=== PATIENT | female | born 1935 | race Caucasian/White ===

== ENCOUNTER 2024-02-29 23:44 | Inpatient (IN) | payer OTHER, SELFPAY ==
[2024-02-29 16:33] VITALS: BP 132/87
[2024-02-29 16:46] VITALS: BMI 17.1
--- NOTE | 2024-02-29 16:52 | HPS.HSE ---
Family Physician
-
Family Physician: Nestor Tamez
Chief Complaint
-
Transfer from [facility] for invasive coronary evaluation.
History of Present Illness
88 y/o female with permanent atrial fibrillation on apixaban and recently diagnosed anemia and systolic cardiomyopathy transferred from [facility] for work up of her cardiomyopathy.
The patient was hospitalized at [facility] from 02/01/2024 to 02/07/2024 with sudden onset SOB/SALOMON and heart failure after CT chest showed pulmonary edema and severe coronary artery calcification. She was hypotensive and required norepinephrine and admission
to the ICU. She was diuresed and weaned off of pressors. Metoprolol was held due to hypotension. Rate control was established with digoxin (IV load, followed by 0.125 mg daily). Troponin peaked at 581 (high sensitivity). Echocardiogram showed
severe left ventricular systolic dysfunction, LVEF 20-25% with severe, global hypokinesis sparing only the basal inferior segment, moderate mitral regurgitation and probably mild . She was discharged with intent to perform outpatient stress test,
barring development of unstable angina. She was found to be anemic (normocytic) but presumed to be iron deficiency. Hbg dropped as low as 8.1. She was not transfused. She expressed hesitation at the thought of EGD/Colonoscopy and has never had
one. She was discharged on atorvastatin, digoxin, ferrous sulfate and apixaban 2.5 mg BID.
The patient was seen by her primary commercial engineer (Dr. Lezama) on 02/14/2024. The patient's digoxin was high prior to the visit and dosing was adjusted to 0.125 mg QOD. Metoprolol succinate 50 mg daily and valsartan 80 mg daily were restarted at
that time as her blood pressure was normal. Cardiac catheterization, EGD and colonoscopy were discussed at that visit, but the initial plan was to defer invasive testing.
On 02/28/2024, the patient re-presented to [facility] with 'arm pain' described as sharp, shooting pains under arms, lasting several minutes at a time. Later than eventing, she developed 10 minutes of left sided chest pain. She was admitted for further
evaluation. Troponin was abnormal at 217 --> 230. She was hemodynamically stable and had an improved H/H from prior. Apixaban was held and a heparin gtt was started. Given her second presentation and elevated troponin, Dr. Amaya reached out for
transfer and invasive coronary evaluation.
On arrival, the patient reveals well. She has not had any more chest or arm pain since last night. Her son, Neeraj, is present and corroborates her story.
DATA:
Transthoracic echocardiogram, 02/02/2024 ([facility]):
Technically fair window.
Borderline concentric left ventricular hypertrophy, though with localized upper septal thickening, no evidence of LVOT gradient.
Severe left ventricular systolic impairment. Estimated LV ejection fraction visually is approximately 20 to 25%. The inferior basilar segment appears to thicken normally. Significant hypokinesis of the remaining myocardium. Basal mid anterior
and anteroseptal segments appear akinetic.
Normal-appearing RV systolic function.
Marked biatrial enlargement.
Ascending aorta moderately dilated, 4.6 cm diameter.
Nonspecific mitral thickening, mild mitral annular calcification, no obvious restriction.
Aortic valve is thickened and sclerotic, with reduced cusp separation. Peak and mean aortic systolic gradient 15 and 8 mmHg respectively, with DVI 0.4, suggestive for low-flow/low gradient mild to moderate aortic stenosis.
Moderate mitral regurgitation, mild tricuspid insufficiency, minimal aortic and pulmonary sufficiency.
LV diastolic function indeterminate due to atrial fibrillation.
IVC diameter normal, with normal respiratory variation.
Trace pericardial effusion.
Large left pleural effusion.
Comparison study from August 10, 2018 demonstrated normal LV systolic function, sclerotic aortic valve without stenosis. Mildly dilated ascending aorta, 4.[address] chest, 02/01/2024 ([facility]):
1. Findings suggesting pulmonary edema and atelectasis with no definite airspace process.
2. Mildly dilated ascending thoracic aorta for which annual follow-up is the standard recommendation.
3. Severe coronary artery calcification is present.
Medical History
Past Medical History
Past Medical History: Reports Arrhythmia (Permanent atrial fibrillation.), CHF (LVEF 20-25% with regional wall motion abnormalities.), HTN, Hypercholesterolemia and Other (Anemia)
Past Surgical History: Reports None
Social History
Tobacco: Non-smoker
Alcohol: None
Drug: None
Employment: Retired
Family History
Family History: Not pertinent
Allergies / Home Medications
Allergies reflects when Allergies were last updated in [employer].
Home Medications with original date entered in [employer]
Allergy/Medication List:
Home medications:
Metoprolol succinate 50 mg daily.
Valsartan 80 mg daily.
Apixaban 2.5 mg twice daily.
Atorvastatin 80 mg daily.
Digoxin 125 mcg every other day.
Ferrous sulfate 325 mg twice daily.
Allergies:
Cefaclor
Cephalexin
Iodinated contrast
Tramadol
Review of Systems
-
Constitutional: Reports No Symptoms and See HPI
EENT: Reports No Symptoms and See HPI
Respiratory: Reports No Symptoms and See HPI
Cardiac: Reports Chest Pain
Abdomen/GI: Reports No Symptoms
: Reports No Symptoms and See HPI
Musculoskeletal: Reports No Symptoms and See HPI
Physical Exam
Vital Signs
Vital Signs
Pulse BP Pulse Ox
101 132/87 97
02/29/24 16:45 02/29/24 16:33 02/29/24 16:33
Physical Exam
General: Well Developed, Well Nourished, No Apparent Distress, Comfortable and Conversant
HEENT: NormoCephalic, Anicteric, Moist mucous membranes, Atraumatic, Good Dentition, PERRLA, Devine Conjunctivae, No Ptosis, Nose Appears Normal, Ears Appear Normal and Neck Nontender
Respiratory: Clear, Non Labored Respirations and Clear to Percussion
Cardiac: S1/S2 and Regular Rhythm
Breast: Deferred by me
GI: Soft, Non Tender, Non Distended and Normal Bowel Sounds
Rectal: Deferred by Provider
Genito-urinary: Deferred by me
Musculoskeletal: No Clubbing, No Cyanosis and No Edema
Skin: Warm and Dry
Neuro: AO x 3, No Motor Deficits, Nonfocal/grossly intact, Cranial Nerves Intact and No Sensory Deficits
Hematologic/Lymphatic: No Lymphadenopathy
Psych: Calm and Intact Judgment/Insight
Laboratory Results
-
02/29/2024 ([facility]):
Sodium 139
Potassium 4.0
Chloride 106
Carbon dioxide 24
BUN 11
Creatinine 0.80
Glucose 82
Calcium 8.2
Magnesium 1.5
WBC 6.1
Hemoglobin 10.0
Hematocrit 32.2
Platelets 206,000
Data Reviewed
-
Diagnostic Radiology: Report Reviewed by me
CT Scan: Report Reviewed by me
Medical Tests (Nuc Med, Echo, EKG etc): Report Reviewed by me
Lab Data: Labs Reviewed by me, Discussed with Physician, Discussed with Nurse and Discussed with Patient
Impression/Plan
-
Impression/Plan: 88 y/o female with HTN, HLD, permanent atrial fibrillation, anemia and severe systolic cardiomyopathy transferred from [facility] for invasive coronary evaluation given two recent admissions.
#Systolic cardiomyopathy
-New as of 02/01/2024.
-LVEF 20-25% with regional wall motion abnormalities.
-CT scan comments on severe coronary calcification.
-R/L catheterization tomorrow for clarification of filling pressures, coronary anatomy.
#Permanent atrial fibrillation
-Chronic, stable.
-Rate controlled on metoprolol and digoxin.
-CHADS2-Vasc = 5 (CHF, HTN, Age x2, Female).
-Apixaban on hold given troponin elevation and need for cath.
#Abnormal troponin
-Acute.
-Check troponin here. Trend from [facility] does not appear to have a peak/fall. There may be CAD but I am not convinced this is true ACS.
#Anemia
-New since 02/01/2024.
-Check Fe/B12/Folate/FOBT/peripheral smear, reticulocyte count/index.
#HTN
-Chronic, stable.
-Continue metoprolol, vasartan.
#HLD/ASCVD
-Chronic, stable.
-Check lipids.
-Continue atorvastatin 80 mg daily.
#PPx
-SCD's and heparin gtt for DVT/VTE.
-No role for PPI at this time.
#Dispo
-IVU status.
[2024-02-29 17:00] VITALS: BMI 17.1
--- NOTE | 2024-02-29 17:30 | PTCARENOTE ---
Assumed care of pt upon tsf from [facility]. No report or orders were available. VSS. Pt arrives with Heparin drip infusing at 550 units/hr through RFA IV. VSS, CM shows AF 70's, POX 97% on RA. Son at bedside, pt oriented to room and
surroundings, awaiting further orders.
[2024-02-29] MEDS: HEPARIN 25000 UNITS/250 ML IV (18:55)
[2024-02-29 19:24] VITALS: BP 99/78
[2024-02-29 20:35] LABS: Hematocrit 34.3 % (37.0-47.0); Hemoglobin 11.2 g/dL (12.0-16.0); Mean Corp Hgb Conc. 32.7 g/dL (33.0-37.0); Mean Corpuscular Hgb 27.2 pg (27.0-31.0); Mean Corpuscular Volume 83.3 fL (81.0-99.0); Mean Platelet Volume 9.6 fL (7.4-10.4); Platelet Count 249 10^3/uL (130-400); Red Blood Cell Count 4.12 10^6/uL (4.20-5.40); Red Cell Dist. Width 17.2 % (11.5-14.5); White Blood Cell Count 7.7 10^3/uL (4.8-10.8)
[2024-02-29 20:48] LABS: ALT (SGPT) 11 U/L (0-35); AST (SGOT) 33 U/L (14-36); Alkaline Phosphatase 99 U/L (38-126); Blood Urea Nitrogen 13 mg/dl (7-17); Calcium 8.4 mg/dl (8.4-10.2); Carbon Dioxide 25 mmol/L (22-30); Chloride 106 mmol/L (98-107); Estimated Creatinine Clearance 39 ml/min; Glucose 102 mg/dl (70-99); Sodium 135 mmol/L (135-145); Total Bilirubin 0.7 mg/dl (0.2-1.3); Total Protein 6.1 g/dl (6.3-8.2); eGFR > 60.00
[2024-02-29] MEDS: LIPITOR 80 MG PO (21:01)
[2024-02-29] MEDS: DELTASONE 50 MG PO (21:01)
[2024-02-29 23:31] VITALS: BP 106/63
[2024-03-01] VITALS (16 sets, daily range): BP systolic 91–130; BP diastolic 46–92
--- NOTE | 2024-03-01 00:41 | PTCARENOTE ---
Pt afib on the monitor- no pain complaints at this time. Heparin gtt running. plan of care discussed- pt verbalized understanding.
[2024-03-01] MEDS: DELTASONE 50 MG PO ×2 (03:21→09:01)
[2024-03-01 04:18] LABS: Hematocrit 34.8 % (37.0-47.0); Hemoglobin 11.3 g/dL (12.0-16.0); Mean Corp Hgb Conc. 32.5 g/dL (33.0-37.0); Mean Corpuscular Volume 83.1 fL (81.0-99.0); Mean Platelet Volume 10.6 fL (7.4-10.4); Platelet Count 255 10^3/uL (130-400); Red Blood Cell Count 4.19 10^6/uL (4.20-5.40); Red Cell Dist. Width 17.2 % (11.5-14.5); White Blood Cell Count 5.9 10^3/uL (4.8-10.8)
[2024-03-01 04:36] LABS: APTT 69.7 Sec (23.4-35.0)
[2024-03-01 04:40] LABS: Blood Urea Nitrogen 13 mg/dl (7-17); Calcium 8.5 mg/dl (8.4-10.2); Carbon Dioxide 22 mmol/L (22-30); Chloride 107 mmol/L (98-107); Estimated Creatinine Clearance 39 ml/min; Glucose 130 mg/dl (70-99); Potassium 4.6 mmol/L (3.5-5.1); Sodium 137 mmol/L (135-145); eGFR > 60.00
[2024-03-01] MEDS: LANOXIN 125 MCG PO (06:31)
[2024-03-01] MEDS: TOPROL XL 50 MG PO (09:01)
[2024-03-01] MEDS: NSS (PRESERVATIVE FREE) 8 ML IV (10:13)
[2024-03-01] MEDS: PEPCID 20 MG IV (10:15)
[2024-03-01] MEDS: BENADRYL 25 MG IV (10:16)
--- NOTE | 2024-03-01 10:23 | W.PN.CD ---
Today's Communication / Plan
-
Right/Left cardiac catheterization today.
Impression / Plan
-
Impression/Plan: 88 y/o female with HTN, HLD, permanent atrial fibrillation, anemia and severe systolic cardiomyopathy transferred from [facility] for invasive coronary evaluation given two recent admissions.
#Systolic cardiomyopathy
-New as of 02/01/2024.
-LVEF 20-25% with regional wall motion abnormalities.
-CT scan comments on severe coronary calcification.
-R/L catheterization today.
#Permanent atrial fibrillation
-Chronic, stable.
-Rate controlled on metoprolol and digoxin.
-CHADS2-Vasc = 5 (CHF, HTN, Age x2, Female).
-Apixaban on hold given troponin elevation and need for cath.
#Abnormal troponin
-Acute.
-Check troponin here. Trend from [facility] does not appear to have a peak/fall. There may be CAD but I am not convinced this is true ACS.
#Anemia
-New since 02/01/2024.
-Check Fe/B12/Folate/FOBT/peripheral smear, reticulocyte count/index.
#HTN
-Chronic, stable.
-Continue metoprolol, vasartan.
#HLD/ASCVD
-Chronic, stable.
-Check lipids.
-Continue atorvastatin 80 mg daily.
#PPx
-SCD's and heparin gtt for DVT/VTE.
-No role for PPI at this time.
#Dispo
-IVU status.
Subjective/Interval History:
No acute events.
No subjective complaints.
She feels well.
She was premedicated for catheterization/contrast allergy overnight.
Physical Exam
Vital Signs/Labs
Vital Signs
Temp Pulse Resp BP Pulse Ox
36.5 C 74 16 119/89 98
03/01/24 07:00 03/01/24 10:00 03/01/24 07:00 03/01/24 07:09 03/01/24 07:09
02/28/24 02/29/24 03/01/24
11:59 11:59 11:59
Actual Weight 45.1 kg
03/01/24 03:28
03/01/24 03:28
APTT 69.7 Sec (23.4-35.0) H 03/01/24 03:28
LAB Results
02/29/24 02/29/24 03/01/24
20:19 21:15 03:28
Troponin I 1.790 H* Cancelled 1.030 H* D
Physical Exam
Constitutional: No acute distress and Comfortable
EENT: Anicteric and Moist mucous membranes
Cardiovascular: Pedal edema is absent, JVD pressure is normal, Rhythm/rate is irregular, S1S2 is normal and Murmur/rub/gallop absent
Respiratory: Respiratory effort normal, Lungs clear to auscul., Wheeze Absent, Crackles Absent and Rhonchi Absent
GI: Soft, Distention absent, Flat, Non tender and Normal bowel sounds
Neuro/Psych: AO x 3
Data Reviewed
-
Date of Service: March 01, 2024
Medical Decision Making: External Notes, Reviewed Test Results, Independent Historian Assessment and Test Interpretation
EKG: Tracing Personally Visualized and interpreted and Report Reviewed by me
Echo: Report Reviewed by me
X-Ray/CT/US/MRI/NUC/PET: Report Reviewed by me
Labs: Labs Reviewed by me and Labs Ordered by me
Old Records: Reviewed
[2024-03-01 10:24] LABS: APTT 133.8 Sec (23.4-35.0)
--- NOTE | 2024-03-01 10:41 | CM ---
Chart reviewed. Patient is independent of ADLS, lives alone in a split level, 0 ELAN. Patient has been staying with her daughter. Patient is current with [facility]. Referral sent to resume services. Plan is for the patient to return to her
daughters house with [facility] CHANEY CM to follow
[2024-03-01 11:10] LABS: % Basophils 0.2 % (0-2); % Immature Granulocytes 0.2 % (0-0.5); % Lymphocytes 11.2 % (20.5-51.1); % Monocytes 1.4 % (1.7-9.3); Absolute Lymphocytes 0.7 10^3/uL (1.2-3.4); Absolute Monocytes 0.1 10^3/uL (0.1-0.6); Absolute Neutrophils 5.1 10^3/uL (1.4-6.5); Nucleated Red Blood Cells % 0 %; Reticulocyte Count 3.4 % (0.4-2.8)
[2024-03-01 11:23] LABS: Iron 53 ug/dl (37-170)
[2024-03-01 11:56] LABS: Ferritin 77.4 ng/ml (11.1-264.0)
[2024-03-01 12:27] LABS: Folate 7.9 ng/ml (2.76-20); Vitamin B12 734 pg/ml (239-931)
[2024-03-01] MEDS: IMDUR (EXTENDED RELEASE) 30 MG PO (13:07)
[2024-03-01] MEDS: DIOVAN 80 MG PO (13:07)
--- NOTE | 2024-03-01 13:13 | ITS.CL.CATH ---
Mental Tester - Catheterization
Cardiac Catheterization
Procedure Report:
CARDIAC CATHETERIZATION REPORT
Date of Procedure: 03/01/2024
Referring: Ezra Amaya D.O.
Indication: Non-ST elevation myocardial infarction, severe systolic cardiomyopathy.
PROCEDURE:
1. Right heart catheterization.
2. Left heart catheterization.
3. Coronary angiography.
4. Aortic valve interrogation.
ACCESS:
6 Macanese right radial artery.
5 Macanese right antecubital vein.
CATHETERS:
1. 5 Macanese balloon wedge.
2. 5 Macanese JL 5.
3. 5 Macanese JR4.
4. 5 Macanese AL-1.
HEMODYNAMIC DATA
Weight (kg): 44.9
AO (s/d/x mmHg): 111/61/81
LV (s/x mmHg): 114/10
PCWP (a/v/x mmHg): 15/15/12
PA (s/d/x mmHg): 28/16/20
RV (s/x mmHg): 28/5
RA (a/v/x mmHg): 04/05/
SVC SvO2 (%): 66.9
PA SvO2 (%): 62.6
SaO2 (%): 96.0
Hbg (g/dL): 10.9
CO (L/min): 3.12
CI (L/min/m2): 2.15
TPG (mmHg): 8
PVR (Knowles Units): 2.56
SVR (dynes*seconds*cm^-5): 1949
AVO2 Diff (Volume %): 4.95
AV gradient (x, mmHg): 6.43
AV area (cm2): 1.50
LEFT VENTRICULOGRAPHY: Not performed.
CORONARY ANGIOGRAPHY
Dominance: Right.
Left Main: Relatively small size, bifurcating vessel. The vessel is diffusely, severely diseased and densely calcified. There is 70-80% relative stenosis throughout the entire vessel.
LAD: Normal size vessel giving rise to 1 significant diagonal. The entire LAD system is severely calcified. There is an 80% lesion in the proximal vessel immediately following a discrete, saccular aneurysm that is likely poststenotic from the
left main. There is a calcified 70-80% lesion in the mid vessel, after the origin of the diagonal accompanied by a second saccular aneurysm. There is a 70-80% lesion in the origin of the diagonal. There is a second 80% lesion in the proximal
diagonal.
Ramus: Congenitally absent.
Circumflex: Chronically totally occluded at its origin.
RCA: Normal size, dominant vessel. The entire vessel is densely calcified throughout. There is a 60% lesion in the mid vessel.
INTERVENTIONS
None.
Closure Device: Vascular band for the right radial artery, manual pressure for the right antecubital vein.
Radiation dose (mGy): 194.55
DAP (cm2.Gy): 13.7281
Fluoroscopy time (minutes): 7.6
Sedation time (minutes): 16
CONCLUSIONS:
1. Right dominant circulation with a diffusely calcified coronary tree, a 60% lesion in the mid RCA, a flush, chronic total occlusion of the ostial circumflex, diffuse 70-80% relative stenosis throughout the entire left main coronary artery, an 80%
lesion in the proximal LAD immediately following a discrete, saccular aneurysm, a 70-80% lesion in the mid LAD after the origin of the diagonal accompanied by a second saccular aneurysm, a 70-80% lesion in the origin of the diagonal and a second 80%
lesion in the proximal diagonal.
2. Normal filling pressures (LVEDP = 10 mmHg, PCWP = 12 mmHg at 44.9 kg).
3. Relatively preserved cardiac index (2.15 L/min/m�) With severely depressed systolic function (LVEF = 20-25% on echocardiogram).
RECOMMENDATIONS:
1. Expectant management after cardiac catheterization via right radial/antecubital approach.
2. Limited weight bearing on the right wrist for one week.
3. We will have a discussion with the patient and her family regarding options including a high risk (mortality >10%) PCI versus medical management and diagnosis of end-stage coronary disease.
Copy to: Ezra Amaya D.O., Maddie Lezama M.D., Nestor Chirinos D.O.
Diogenes Beebe DO, FACC, FACP
[2024-03-01] MEDS: HEPARIN 25000 UNITS/250 ML IV (20:05)
[2024-03-01] MEDS: LIPITOR PO (22:35)
[2024-03-01] MEDS: LIPITOR 80 MG PO (22:37)
[2024-03-02 03:07] VITALS: BP 95/67
--- NOTE | 2024-03-02 03:14 | PTCARENOTE ---
Heparin drip started at 1999. Remains in A-fib in the 60's. No complaints.
[2024-03-02 04:02] LABS: APTT 49.4 Sec (23.4-35.0)
[2024-03-02 04:02] LABS: Hematocrit 26.9 % (37.0-47.0); Mean Corp Hgb Conc. 33.1 g/dL (33.0-37.0); Mean Corpuscular Hgb 27.3 pg (27.0-31.0); Mean Corpuscular Volume 82.5 fL (81.0-99.0); Mean Platelet Volume 10.5 fL (7.4-10.4); Platelet Count 248 10^3/uL (130-400); Red Blood Cell Count 3.26 10^6/uL (4.20-5.40); Red Cell Dist. Width 17.1 % (11.5-14.5); White Blood Cell Count 9.6 10^3/uL (4.8-10.8)
[2024-03-02 04:10] LABS: Hemoglobin 8.9 g/dL (12.0-16.0)
[2024-03-02 04:12] LABS: Blood Urea Nitrogen 20 mg/dl (7-17); Calcium 8.3 mg/dl (8.4-10.2); Carbon Dioxide 20 mmol/L (22-30); Chloride 109 mmol/L (98-107); Estimated Creatinine Clearance 39 ml/min; Glucose 118 mg/dl (70-99); Potassium 4.4 mmol/L (3.5-5.1); Sodium 135 mmol/L (135-145); eGFR > 60.00
--- NOTE | 2024-03-02 06:11 | PTCARENOTE ---
HR at times into the 40's, EKG done to assess rhythm, confirmed A-fib. HR now in the 60's.
--- NOTE | 2024-03-02 07:29 | W.PN.CD ---
Addendum entered and electronically signed by Diogenes Beebe DO 03/02/24 17:38:
Response to CDI: Acute on chronic systolic combined systolic/diastolic heart failure. Total protein malnutrition.
Original Note:
Today's Communication / Plan
-
DC heparin gtt.
Repeat CBC.
Start isosorbide mononitrate.
SL nitro for pain.
Discharge planning.
If H/H is stable or improved, she can probably be discharged today.
Impression / Plan
-
Impression/Plan: 88 y/o female with HTN, HLD, permanent atrial fibrillation, anemia and severe systolic cardiomyopathy transferred from [facility] for invasive coronary evaluation given two recent admissions.
#Severe ischemic cardiomyopathy
-New as of 02/01/2024.
-LVEF 40% with regional wall motion abnormalities, moderate/severe MR, moderate .
-Cath shows severe, multivessel disease.
-GDMT as hemodynamics will tolerate.
#CAD/NSTEMI
-Chronic.
-Cath shows severe LMCA/LAD disease with MAINFRAME ARCHITECT of the LCx and two saccular aneurysms.
-This coronary artery disease is high risk for any intervention.
-I have had a thorough discussion with the patient and her family. I discussed two possibilities - an extreme risk intervention (> 10% risk of mortality) vs. medical management and acceptance that her CAD is end-stage. The patient ultimately opted
for medical management. I also opened the door to hospice/EoL care at home to assist with pain control and to avoid future hospitalization. She is going to consider this but was not excited about it.
-I reached out to Dr. Lezama ([facility]) and informed her of these developments.
#Permanent atrial fibrillation
-Chronic, stable.
-Rate controlled on metoprolol and digoxin.
-CHADS2-Vasc = 5 (CHF, HTN, Age x2, Female).
-D/C heparin gtt. Hold all anticoagulation indefinitely. Her day to day risk of thromboembolic event is low in the context of falling H/H.
#Anemia
-New since 02/01/2024.
-Check Fe/B12/Folate/FOBT/peripheral smear, reticulocyte count/index.
-Hbg down to 8.9 on this morning's labs. Repeat CBC to see if this is lab error.
-Hold anticoagulation indefinitely at this time.
#HTN
-Chronic, stable.
-Continue metoprolol, vasartan.
#HLD/ASCVD
-Chronic, stable.
-Check lipids.
-Continue atorvastatin 80 mg daily.
#PPx
-SCD's for DVT/VTE.
-No role for PPI at this time.
#Dispo
-IVU status.
-Discharge planning.
Subjective/Interval History:
Catheterization shows severe, near end-stage left coronary disease.
I discussed high risk intervention vs. medical therapy, potentially invocation of hospice to assist with pain control.
Patient discussed with family.
Hbg droped to 8.9
DATA:
Cardiac Catheterization, 03/01/2024:
CONCLUSIONS:
1. Right dominant circulation with a diffusely calcified coronary tree, a 60% lesion in the mid RCA, a flush, chronic total occlusion of the ostial circumflex, diffuse 70-80% relative stenosis throughout the entire left main coronary artery, an 80%
lesion in the proximal LAD immediately following a discrete, saccular aneurysm, a 70-80% lesion in the mid LAD after the origin of the diagonal accompanied by a second saccular aneurysm, a 70-80% lesion in the origin of the diagonal and a second 80%
lesion in the proximal diagonal.
2. Normal filling pressures (LVEDP = 10 mmHg, PCWP = 12 mmHg at 44.9 kg).
3. Relatively preserved cardiac index (2.15 L/min/m�) With severely depressed systolic function (LVEF = 20-25% on echocardiogram).
TTE, 03/01/2024:
CONCLUSIONS
Normal LV size with mild to moderately reduced systolic function.
LVEF is 40% by Ohara's method of discs.
LAD territory hypokinesis.
Normal right ventricular size and function.
Moderate to severe eccentric mitral regurgitation.
Moderate aortic stenosis.
Mild aortic regurgitation.
Mild to moderate tricuspid regurgitation.
Estimated pulmonary artery pressure of 32 mmHg, assuming a right atrial
pressure of 3 mmHg.
Dilated ascending aorta is 4.5 cm.
No prior for comparison.
Physical Exam
Vital Signs/Labs
Vital Signs
Temp Pulse Resp BP Pulse Ox
36.8 C 52 18 95/67 99
03/02/24 06:13 03/02/24 06:00 03/02/24 06:13 03/02/24 03:07 03/02/24 06:13
02/29/24 03/01/24 03/02/24
11:59 11:59 11:59
Actual Weight 45.1 kg
03/02/24 03:15
03/02/24 03:15
APTT 49.4 Sec (23.4-35.0) H 03/02/24 03:14
LAB Results
02/29/24 02/29/24 03/01/24
20:19 21:15 03:28
Troponin I 1.790 H* Cancelled 1.030 H* D
Physical Exam
Constitutional: No acute distress and Comfortable
EENT: Anicteric and Moist mucous membranes
Cardiovascular: Pedal edema is absent, JVD pressure is normal, Rhythm/rate is irregular, S1S2 is normal and Murmur/rub/gallop absent
Respiratory: Respiratory effort normal, Lungs clear to auscul., Wheeze Absent, Crackles Absent and Rhonchi Absent
GI: Soft, Distention absent, Flat, Non tender and Normal bowel sounds
Neuro/Psych: AO x 3
Other: Cath Site (Right radial access site is C/D/I.)
Data Reviewed
-
Date of Service: March 02, 2024
Medical Decision Making: Reviewed Test Results, Independent Historian Assessment, Test Interpretation and Review of Case with other Provider
EKG: Tracing Personally Visualized and interpreted and Report Reviewed by me
Echo: Report Reviewed by me
X-Ray/CT/US/MRI/NUC/PET: Image Personally Visualized and interpreted and Report Reviewed by me
Medical Tests (PFT, Pathology etc): Image Personally Visualized and interpreted and Report Reviewed by me
Labs: Labs Reviewed by me
Old Records: Reviewed
[2024-03-02 07:38] VITALS: BP 110/74
[2024-03-02] MEDS: IMDUR (EXTENDED RELEASE) 30 MG PO (09:50)
[2024-03-02] MEDS: DIOVAN 80 MG PO (09:50)
[2024-03-02] MEDS: TOPROL XL 50 MG PO (09:50)
[2024-03-02 10:02] LABS: Hematocrit 32.9 % (37.0-47.0); Hemoglobin 10.4 g/dL (12.0-16.0); Mean Corp Hgb Conc. 31.6 g/dL (33.0-37.0); Mean Corpuscular Hgb 27.2 pg (27.0-31.0); Mean Corpuscular Volume 86.1 fL (81.0-99.0); Mean Platelet Volume 10.1 fL (7.4-10.4); Platelet Count 284 10^3/uL (130-400); Red Blood Cell Count 3.82 10^6/uL (4.20-5.40); Red Cell Dist. Width 17.2 % (11.5-14.5); White Blood Cell Count 12.8 10^3/uL (4.8-10.8)
[2024-03-02 10:12] LABS: APTT 39.9 Sec (23.4-35.0)
--- NOTE | 2024-03-02 10:37 | CM ---
Chart reviewed. Patient is independent of ADLS, lives alone in a split level home, 0 ELAN ambulates with a rollator. Patient has been staying at her [facility] in [place]. Patient is current with [facility], but is interested in Hospice.
Referral sent to [facility]. Plan is for the patient to return home with Hospice.
[2024-03-02 11:27] VITALS: BP 92/43
--- NOTE | 2024-03-02 11:52 | PN.CDI ---
CDI
- -
CDI:
Physician Documentation Request
Admit Date: 02/29/24 23:44
Dear Doctor Abiel,
Please review the following and provide your response in the progress notes.
Clinical Indicators:
- 03/02 Cardiology note 'Severe ischemic cardiomyopathy'
- 'CHADS2-Vasc = 5 (CHF, HTN, Age x2, Female)'
- 03/01 H&P 'patient was hospitalized at [facility] ... with sudden onset SOB/SALOMON and heart failure after CT chest showed pulmonary edema'
- 03/01 Echo EF 40%
- 'mild to moderately reduced systolic function'
- 'Diastolic function indeterminate due to atrial fibrillation'
Please provide further specificity regarding the most likely type and acuity of CHF you are evaluating, treating or monitoring.
Type Acuity
Systolic Acute
Diastolic Chronic
Combined Systolic/Diastolic Acute on Chronic
Other
Use of terms such as suspected, likely, concern for, or probable (associated with a specific diagnosis that is being evaluated, monitored, or treated as if it exists) are acceptable and can be coded in the inpatient setting, when documented at the
time of discharge.
Thank you,
Barb Manriquez RN
CDI Specialist
Please use your independent medical judgment in providing your response.
--- NOTE | 2024-03-02 11:59 | PN.CDI ---
CDI
- -
CDI:
Physician Documentation Request
Admit Date: 02/29/24 23:44
Dear Doctor Abiel,
Please review the following and provide your response in the progress notes.
Clinical Indicators:
- 5/2 Shirt Folder note indicates severe protein calorie malnutrition
- >20% wt loss x 1yr
- prolonged inadequate intake prior to hospital admit <75% for >1mo
- BMI 17.1
Based on the information, which of the following most accurately represents the patient's nutritional status?
Severe protein calorie malnutrition
Other
[place] Criteria ([facility] 2017)
2 or more criteria must be present for either
non severe or severe malnutrition
Note that the criteria differs related to the
presence of an acute or chronic illness
Acute Illness Chronic Illness
Energy Intake Non Severe: <75% for >7 days Non Severe: <75% for >1 month
Severe: <50% for >5 days Severe: <75% for >1 month
Weight Loss Non Severe: 1-2% over 1 week Non Severe: 5% over 1 month
5% over 1 month 7.5% over 3 months
7.5% over 3 months 10% over 6 months
1 year N/A 20% over 1 year
Severe: >2% over 1 week Severe: >5% over 1 month
>5% over 1 month >7.5% over 3 months
>7.5% over 3 months >10% over 6 months
1 year N/A >20% over 1 year
Body Fat Non Severe: Mild Decrease Non Severe: Mild Loss
Severe: Moderate Decrease Severe: Severe Loss
Muscle Mass Non Severe: Mild Decrease Non Severe: Mild Loss
Severe: Moderate Decrease Severe: Severe Loss
Fluid Accumulation Non Severe: Mild Accumulation Non Severe: Mild Accumulation
Severe: Moderate to severe Severe: Moderate to severe
accumulation accumulation
Reduced [employer] Specialist Strength Non Severe: N/A Non Severe: N/A
Severe: Measurably reduced Severe: Measurably reduced
Additional criteria that can be used to Determine if Mild or Moderate Malnutrition ([employer] Manual 2018)
Mild Moderate Severe
Albumin gm/dl <3.0 gm/dl <2.5 gm/dl <2.0 gm/dl
Pre Albumin mg/dl <15 gm/dl <10 mg/dl <5.0 mg/dl
BMI <18.5 <17 <16
Use of terms such as suspected, likely, concern for, or probable (associated with a specific diagnosis that is being evaluated, monitored, or treated as if it exists) are acceptable and can be coded in the inpatient setting, when documented at the
time of discharge.
Thank you,
Barb Manriquez RN
CDI Specialist
Please use your independent medical judgment in providing your response.
--- NOTE | 2024-03-02 15:05 | W.DS.TRANS ---
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
-
Discharge Instructions:
Sleep Apnea Risk Intermediate
Discharge Diagnosis/Procedures Cardiac cath
Diet Low Cholesterol,2 Gram Sodium
Driving Restrictions No driving for 24 hours
Blood Work Check cbc in 1 week
Other Services Cardiac Rehab
Specialty Instructions Weigh Daily
Instructions:
Stand-Alone Forms: DC Instructions- Cath/EP Lab
Changes to Home Medications: Yes
Discharge Medications:
DC Medications w/original date entered in [employer]
apixaban 2.5 mg tablet 2.5 mg PO BID 02/29/24
atorvastatin 80 mg tablet 80 mg PO HS 02/29/24
digoxin 125 mcg (0.125 mg) tablet 125 mcg PO Q48H 02/29/24
ferrous sulfate 325 mg (65 mg iron) tablet 325 mg PO BID 02/29/24
metoprolol succinate 50 mg tablet,extended release 24 hr 50 mg PO DAILY 02/29/24
valsartan 80 mg tablet 80 mg PO DAILY 02/29/24
isosorbide mononitrate 30 mg tablet,extended release 24 hr 30 mg PO DAILY #90 tabs 03/02/24
nitroglycerin 0.4 mg sublingual tablet 0.4 mg sublingual [id number] PRN chest pain/arm pain #25 tabs 03/02/24
Home Medication Changes
new to isosorbide and nitro
Pending Results: No
== END 2024-03-02 14:26 | disposition home or self-care (01) | DRG 280 ==
LOC: IVU 23:44
PROVIDERS: ADMITTING PHYSICIAN Internal Medicine Cardiovascular Disease; FAMILY PHYSICIAN Family Medicine
PROC: B2161ZZ Fluoroscopy of Right and Left Heart using Low Osmolar Contrast (ICD-10-PCS; 2024-03-01)
PROC: 4A023N8 Measurement of Cardiac Sampling and Pressure, Bilateral, Percutaneous Approach (ICD-10-PCS; 2024-03-01)
PROC: B2111ZZ Fluoroscopy of Multiple Coronary Arteries using Low Osmolar Contrast (ICD-10-PCS; 2024-03-01)
DX: I21.4 Non-ST elevation (NSTEMI) myocardial infarction (principal); I50.43 Acute on chronic combined systolic (congestive) and diastolic (congestive) heart failure; I42.8 Other cardiomyopathies; I48.21 Permanent atrial fibrillation; E46 Unspecified protein-calorie malnutrition; Z68.1 Body mass index [BMI] 19.9 or less, adult; D64.9 Anemia, unspecified; Z79.01 Long term (current) use of anticoagulants; I50.9 Heart failure, unspecified; I11.0 Hypertensive heart disease with heart failure; I25.10 Atherosclerotic heart disease of native coronary artery without angina pectoris; E78.00 Pure hypercholesterolemia, unspecified; I25.5 Ischemic cardiomyopathy; I08.3 Combined rheumatic disorders of mitral, aortic and tricuspid valves
CPT/HCPCS: 80048; 80053; 82607; 82728; 82746; 83036; 83540; 84484; 85025; 85027; 85045; 85730; 93005; 93306; 93460; C1769; C1894; Q9967